=== PATIENT | female | born 1985 | race Caucasian/White ===

== ENCOUNTER 2017-09-28 21:18 | Inpatient (IN) | payer OTHER ==
[~2017-09-28] VITALS: Ht 157.5 cm; Wt 108.5 kg
--- NOTE | ~2017-09-28 | P ---
[facility] [place] [address] PROCEDURE REPORT Name: LILIANA ERNST Room #: 422-P [facility] IN M.R.#: [id number] Admission: 09/28/17 Attend Phys: Wes Gomez MD Discharge: 09/30/17 Date of : 81 Report #: [id number] THIS REPORT FOR: //name// CC: Gracie Gomez MD DATE OF SERVICE: 09/30/2017 PROCEDURE PERFORMED: Flexible sigmoidoscopy. HISTORY OF PRESENT ILLNESS: The patient is a 32-year-old female with recent history of nausea, vomiting, diarrhea, recently travelled to the [place]. CT scan of the abdomen and pelvis was normal other than a uterine fibroid. Stool studies reportedly negative. She was placed on Cipro by her primary physician. She does report having some left lower quadrant abdominal pain as well as some bright red blood per rectum with the stool. No previous history of endoscopy. DESCRIPTION OF PROCEDURE: The risks and benefits of the procedure were explained to the patient, those risks including but not limited to bleeding, perforation, and the risk of sedation. She understood these risks and gave informed consent. Sedation was given using propofol per anesthesia. Next, a digital rectal exam was initially performed, which was normal. Next, using a standard Olympus colonoscope, the scope was placed in the patient's anus and advanced under direct vision to the transverse colon. The prep was fairly good in the sigmoid colon and rectum. There were some stool in the transverse and descending colon, which did limit visualization somewhat. There was no evidence of blood throughout the exam today. The distal transverse, descending and sigmoid colon were all normal. No evidence of colitis or inflammation. The rectal mucosa was normal. On retroflexion, no abnormalities were noted. Close examination of the anal canal showed no obvious hemorrhoids. There was no anal fissure. There was no bleeding. At this point, the scope was withdrawn and the procedure terminated. The patient tolerated the procedure well. IMPRESSION: Normal flexible sigmoidoscopy. No evidence of bleeding. Etiology of blood is unclear, although the patient may have had a fissure recently, which has healed. RECOMMENDATIONS: We will start a regular diet today. If she tolerates this well, likely consider discharge to home. Continue antibiotics. [address] [address] PROCEDURE REPORT Name: LILIANA ERNST Room #: 422-P [facility] IN M.R.#: [id number] Admission: 09/28/17 Attend Phys: Wes Gomez MD Discharge: 09/30/17 Date of : 81 Report #: [id number] Thank you for allowing me to participate in her care. By: [id number] Enrique Tirado MD /nt
[~2017-09-28 21:18] MED LIST: PHENERGAN 25 MG25 M1 PO; PROMS25 WY RECTAL; ZOFRAN ODT4 MG PO
[2017-09-28 21:41] VITALS: BP 138/87
[2017-09-28] MEDS ORDERED: CIPRO500 MG PO (21:46)
[2017-09-28] MEDS ORDERED: CORTISPORIN OTI10 ML OTIC (21:48)
[2017-09-28] MEDS ORDERED: HYOSCYAMINE0.125 MG PO (21:48)
[2017-09-28] MEDS ORDERED: ZYRTEC10 M5 PO (21:49)
[2017-09-28] MEDS ORDERED: ATROVENT HFA14 GM INH (21:49)
[2017-09-28 22:27] LABS: ABSOLUTE NEUTROPHILS 7.5 thou/uL (1.4-8.2); BASOPHILS 0.9 % (0.0-2.0); EOSINOPHILS 3.6 % (0.0-3.0); HEMATOCRIT 39.5 % (37.0-47.0); HEMOGLOBIN 13.1 gm/dL (12.0-15.0); LYMPHOCYTES 24.9 % (24.0-44.0); MCH 27.3 pg (26.0-34.0); MCHC 33.1 g/dL (28.0-37.0); MCV 82.6 fL (80.0-100.0); MONOCYTES 9.2 % (1.0-8.0); PLATELET COUNT 371 thou/uL (150-400); POLYS 61.4 % (36.0-66.0); RBC 4.79 mil/uL (4.20-5.00); RDW 13.9 % (10.5-14.5); WBC 12.3 thou/uL (4.0-11.0)
[2017-09-28 22:34] LABS: CALCIUM 9.1 mg/dL (8.5-10.1); CREATININE 0.9 mg/dL (0.6-1.0); POTASSIUM 3.7 mmol/L (3.5-5.1)
[2017-09-28 22:39] LABS: ALBUMIN 3.6 g/dL (3.4-5.0); TOTAL BILIRUBIN 0.2 mg/dL (<0.1-1.0); TOTAL PROTEIN 7.5 g/dL (6.4-8.2)
[2017-09-29] VITALS (7 sets, daily range): BP systolic 105–142; BP diastolic 49–74
[2017-09-29 17:16] LABS: URINE BILIRUBIN NEGATIVE (Negative); URINE BLOOD NEGATIVE (Negative); URINE CLARITY CLEAR; URINE COLOR YELLOW; URINE GLUCOSE-RANDOM* NEGATIVE (Negative); URINE KETONES NEGATIVE (Negative); URINE LEUKOCYTES-REFLEX NEGATIVE (Negative); URINE NITRITE-REFLEX NEGATIVE (Negative); URINE PROTEIN (DIPSTICK) NEGATIVE (Negative); URINE SPECIFIC GRAVITY 1.015 (1.005-1.035); URINE UROBILINOGEN 0.2 E.U./dl (0.2-1.0)
[2017-09-30 04:12] VITALS: BP 116/65
[2017-09-30 04:32] VITALS: BP 116/65
[2017-09-30 07:54] VITALS: BP 130/78
[2017-09-30 14:55] LABS: BASOPHILS 0.6 % (0.0-2.0); EOSINOPHILS 1.6 % (0.0-3.0); HEMATOCRIT 38.6 % (37.0-47.0); HEMOGLOBIN 12.7 gm/dL (12.0-15.0); LYMPHOCYTES 16.2 % (24.0-44.0); MCH 27.3 pg (26.0-34.0); MCHC 32.8 g/dL (28.0-37.0); MCV 83.2 fL (80.0-100.0); MONOCYTES 5.7 % (1.0-8.0); PLATELET COUNT 373 thou/uL (150-400); POLYS 75.9 % (36.0-66.0); RBC 4.64 mil/uL (4.20-5.00); RDW 14.4 % (10.5-14.5); WBC 15.9 thou/uL (4.0-11.0)
[2017-09-30 15:05] LABS: CALCIUM 8.6 mg/dL (8.5-10.1); CREATININE 0.9 mg/dL (0.6-1.0)
[2017-09-30 16:04] VITALS: BP 113/66
[2017-09-30] MEDS ORDERED: FLAGYL500 MG PO (16:59)
[2017-09-30] MEDS ORDERED: AMOXICILLIN 50500 M1 PO (16:59)
[2017-09-30 17:14] VITALS: BP 113/66
== END 2017-09-30 18:00 | disposition home or self-care (01) | DRG 392 ==
LOC: ER 21:18 → EROBS 23:50 → 4E 23:50
PROVIDERS: Emergency Medicine; Hospitalist
PROC: 0DJD8ZZ Inspection of Lower Intestinal Tract, Via Natural or Artificial Opening Endoscopic (ICD-10-PCS; principal; 2017-09-30)
DX: K52.9 Noninfective gastroenteritis and colitis, unspecified (principal); Z68.41 Body mass index [BMI] 40.0-44.9, adult; J45.909 Unspecified asthma, uncomplicated; E86.0 Dehydration; E66.9 Obesity, unspecified; Z90.49 Acquired absence of other specified parts of digestive tract; Z79.899 Other long term (current) drug therapy; Z91.048 Other nonmedicinal substance allergy status; Z80.6 Family history of leukemia; Z83.79 Family history of other diseases of the digestive system
CPT/HCPCS: 10084